=== PATIENT | female | born 1955 | race African-American/Black ===

== ENCOUNTER → 2016-12-06 | Day surgery (SDC) | payer BC ==
[~2016-12-06] MED LIST: DULO60CA6 PO; GABA-586 PO; IV RINGERS,LACTATED 1000ML 1,000 ML IV SCH; LIDOCAINE 2% PF Vial for OR 5 ML VIAL. ONE; MULT-245 PO; OXYC-323 PO; PROPOFOL 20 ML IV ONE; TRIA1CAP3 PO
[2016-12-06 09:28] VITALS: BP 121/71
== END | disposition home or self-care (01) ==
LOC: ENDOS 07:51
PROVIDERS: ATTEND Internal Medicine Gastroenterology
DX: Z12.11 Encounter for screening for malignant neoplasm of colon (principal); K64.0 First degree hemorrhoids; I10 Essential (primary) hypertension; M19.90 Unspecified osteoarthritis, unspecified site; F32.9 Major depressive disorder, single episode, unspecified
CPT/HCPCS: J2704